=== PATIENT | female | born 1980 | race Caucasian/White ===

== ENCOUNTER 2016-05-12 21:47 | Emergency (ER) ==
[2016-05-12 21:48] VITALS: BMI 36.8
[2016-05-12 21:56] VITALS: BP 144/84; TEMP 98
[2016-05-12] MEDS ORDERED: PHENERGAN 25 MG/ML VIAL 25 MG in SODIUM CHLORIDE 50 ML IV STA (22:10)
[2016-05-12] MEDS ORDERED: SODIUM CHLORIDE 1,000 ML IV STA (22:10)
[2016-05-12] MEDS ORDERED: DEMEROL 25 MG/ML SYRINGE IVP STA (22:10)
[2016-05-12] MEDS ORDERED: PHENERGAN 25 MG/ML VIAL ONE (22:19)
[2016-05-12 22:21] LABS: BASOPHILS % (AUTO) 0.3 % (0.0-3.0); EOSINOPHILS # (AUTO) 0.1 K/ul (0.0-0.7); HEMATOCRIT 40.9 % (37.0-47.0); HEMOGLOBIN 13.7 g/dl (12.0-16.0); IMMATURE GRANULOCYTE % (AUTO) 0.3 % (0.0-5.0); LYMPHOCYTES # (AUTO) 2.6 K/uL (0.60-3.4); LYMPHOCYTES % (AUTO) 28.7 (10.0-50.0); MEAN CORPUSCULAR HEMOGLOBIN 28.3 pg (27.0-31.0); MEAN CORPUSCULAR HGB CONC 33.5 (31.8-35.4); MEAN CORPUSCULAR VOLUME 84.5 fl (81.0-99.0); MONOCYTES # (AUTO) 0.7 K/uL (0.4-2.0); MONOCYTES % (AUTO) 7.3 (0-10); NEUTROPHILS # (AUTO) 5.5 K/ul (2.0-6.9); NEUTROPHILS % (AUTO) 62.4; PLATELET COUNT 259 10^3/uL (140-440); RED BLOOD COUNT 4.84 10^6/ul (4.20-5.40); WHITE BLOOD COUNT 8.87 K/ul (4.6-10.2)
[2016-05-12 22:26] LABS: BILIRUBIN,URINE Negative (NEGATIVE); KETONES,URINE Negative (NEGATIVE); LEUKOCYTE ESTERASE ,URINE Negative (NEGATIVE); NITRITE,URINE Negative (NEGATIVE); PROTEIN,URINE Negative (NEGATIVE); URINE, BLOOD Trace-intact (NEGATIVE)
[2016-05-12 22:28] LABS: URINE PREGNANCY INTERNAL QC INTERNAL QC VALID
[2016-05-12 22:34] LABS: ADD URINE MICROSCOPIC YES
[2016-05-12 22:37] LABS: FLU INTERNAL QC INTERNAL QC VALID; RAPID FLU A NEGATIVE (NEGATIVE); RAPID FLU B NEGATIVE (NEGATIVE)
[2016-05-12 22:41] LABS: ALBUMIN 4.5 g/dL (3.4-5.0); ALBUMIN/GLOBULIN RATIO 1.07; ANION GAP 16.8; BILIRUBIN,TOTAL 0.28 mg/dL (0.00-1.20); BUN/CREATININE RATIO 8.75; CALCIUM 9.8 mg/dL (8.2-10.2); CREATININE 0.8 mg/dL (0.60-1.30); POTASSIUM 3.8 mmol/L (3.5-5.10); TOTAL PROTEIN 8.7 g/dL (6.4-8.2)
[2016-05-12 22:53] LABS: ERYTHROCYTE SEDIMENTATION RATE 24 mm/hr (0-20); ESR INTERNAL QC INTERNAL QC VALID
--- NOTE | 2016-05-12 23:17 | CT ---
EXAM: CT abdomen pelvis without and with intravenous contrast 05/12/2016. Coronal reformatted imag es obtained HISTORY: Abdominal pain and vomiting COMPARISON: 01/19/2015 FINDINGS: The liver shows no acute abnormality. Gallbladder has been removed. The adrenal glands and kidneys show no acute abnormality. The spleen and pancreas show no acute pro cess. There is no evidence of bowel obstruction. Diffusely fluid-filled distal small bowel may represent enteritis and/or ileus. Air-fluid levels within the colon. Correlate for diarrhea. Intrauterine d evice is in place. Unremarkable urinary bladder. No free air or free fluid. IMPRESSION: 1. No urinary or bowel obstruction and normal appendix 2. Fluid-filled distal small bowel. Air-fluid levels in the colon. This may relate to enteritis/d iarrhea.
[2016-05-12] MEDS ORDERED: MORPHINE 2 MG/ML SYRINGE IVP STA (23:23)
[2016-05-12] MEDS ORDERED: TORADOL IVP STA (23:23)
--- NOTE | 2016-05-12 23:26 | ED.PDOC ---
General ED Provider: Dr. SHAHNAZ STRICKLAND-ER Chief Complaint: Abdominal Pain Stated Complaint: hollie had diarrrhea and cramping Time Seen by Physician: 21:50 Mode of Arrival: Walk-In Information Source: Patient Exam Limitations: No limitations Primary Care Provider: SHAHNAZ STRICKLAND Nursing and Triage Documentation Reviewed and Agree: Yes GI Complaint Exam - Abdominal Pain Complaint/Exam Onset: Gradual Duration: several hours Symptoms Are: Still present Timing: Intermittent Initial Severity: Mild Current Severity: Mild Location of Pain: Diffuse Character: Reports: Dull, Aching, Cramping, Colicky Aggravating: Reports: None Alleviating: Reports: None Associated Signs and Symptoms: Reports: Decreased appetite, Nausea, Diarrhea. Denies: Diaphoresis, Fever, Cough, Chest pain, Dizziness, Back pain, Constipation, Blood in stool, Dysuria, Urinary frequency, Decreased urine output , Vaginal bleeding, Vaginal discharge, Vomiting, Sore throat, Decreased activity AAA Risk Factors: Reports: None Cardiac Risk Factors: Reports: None Ectopic Risk Factors: Reports: None Ovarian Torsion Risk Factors: Reports: Reproductive age Surgical Obstruction Risk Factors: Reports: Colicky abdominal pain Patient Rh Status: Unknown Abdominal Findings: Present: None Differential Diagnoses: Constipation, Diverticulitis, Gastroenteritis, Pancreatitis Review of Systems - Review Of Systems Constitutional: Reports: No symptoms Eyes: Reports: No symptoms Ears, Nose, Mouth, Throat: Reports: No symptoms Respiratory: Reports: No symptoms Cardiac: Reports: No symptoms GI: Reports: Abdominal pain, Diarrhea, Nausea : Reports: No symptoms Musculoskeletal: Reports: No symptoms Skin: Reports: No symptoms Neurological: Reports: No symptoms Endocrine: Reports: No symptoms Hematologic/Lymphatic: Reports: No symptoms All Other Systems: Reviewed and Negative Past Medical History - Past Medical History Endocrine: Reports: None Cardiovascular: Reports: None Respiratory: Reports: None Hematological: Reports: None Gastrointestinal: Reports: Other (IBS) Genitourinary: Reports: None Neuro/Psych: Reports: None Musculoskeletal: Reports: None Cancer: Reports: None Last Menstrual Period: 3 months ago - has IUD Other Pertinent Past Medical History: enlarged spleen, - Surgical History General Surgical History: Reports: Cholecystectomy - Family History Family History: Reports: None - Social History Smoking Status: Former smoker Hx Substance Use: No Alcohol Screening: None - Immunizations Tetanus Shot up to Date: Yes Physical Exam - Physical Exam Appearance: Well-appearing, No pain distress, Well-nourished Pain Distress: Mild Eyes: JASON ENT: Ears normal, Nose normal, Oropharynx normal Neck: Supple Respiratory: Airway patent, Breath sounds clear, Breath sounds equal, Respirations nonlabored Cardiovascular: RRR, Pulses normal, No rub, No murmur GI/: Soft, Nontender, No masses, Bowel sounds normal, No Organomegaly Musculoskeletal: Normal strength, ROM intact, No edema, No calf tenderness Skin: Warm, Dry, Normal color Neurological: Sensation intact, Motor intact, Reflexes intact, Cranial nerves intact, Alert, Oriented Psychiatric: Affect appropriate Interpretation - Radiology Interpretation Radiology Interpretation By: ED Physician Radiology Results: Negative Exam Interpreted: CT Scan Re-Evaluation - Re-Evaluation Time of Re-Evaluation: 23:26 Status: Improved Vital Signs Stable: Yes Pain Level: 2 Appearance: NAD Lungs: Clear Skin: Warm and Dry Neuro: Alert and Oriented X3 CV: RRR Critical Care Note - Critical Care Note Total Time (mins): 0 Course - Course Hematology/Chemistry: 05/12/16 22:19 05/12/16 22:19 Orders, Labs, Meds: Lab Review 05/12/16 05/12/16 05/12/16 22:12 22:15 22:19 WBC 8.87 RBC 4.84 Hgb 13.7 Hct 40.9 MCV 84.5 MCH 28.3 MCHC 33.5 RDW Coeff of Sabino 12.9 Plt Count 259 Immature Gran % (Auto) 0.3 Neut % (Auto) 62.4 Lymph % (Auto) 28.7 [place] % (Auto) 7.3 Eos % (Auto) 1.0 Baso % (Auto) 0.3 Immature Gran # (Auto) 0.0 Neut # 5.5 Lymph # 2.6 [place] # 0.7 Eos # 0.1 Baso # 0.0 ESR 24 H Sodium 141 Potassium 3.8 Chloride 107 Carbon Dioxide 21 Anion Gap 16.8 BUN 7 Creatinine 0.80 Estimated GFR (MDRD) 82.00 BUN/Creatinine Ratio 8.75 Glucose 94 Calcium 9.8 Total Bilirubin 0.28 AST 50 H ALT 90 H Alkaline Phosphatase 66 Total Protein 8.7 H Albumin 4.5 Globulin 4.2 Albumin/Globulin Ratio 1.07 Amylase 21 L Lipase 16 Urine Color Yellow Urine Clarity Clear Urine pH 6.0 Ur Specific [place] <=1.005 Urine Protein Negative Urine Glucose (UA) Negative Urine Ketones Negative Urine Blood Trace-intact Urine Nitrite Negative Urine Bilirubin Negative Urine Urobilinogen 0.2 Ur Leukocyte Esterase Negative Urine Microscopic RBC 0-2 Ur Squamous Epith Cells 2-5 Urine Test Negative Influenza A (Rapid) Negative Influenza B (Rapid) Negative Orders Category Date Time Status NPO REMINDER: IMAGING ONCE CARE 05/12/16 22:11 Completed IV [ED IV/MEDIPORT/POWERPORT] .ONCE EMERGENCY 05/12/16 22:10 Active AMYLASE Stat LAB 05/12/16 22:19 Completed CBC W/ AUTO DIFF Stat LAB 05/12/16 22:19 Completed COMPREHENSIVE METABOLIC PANEL Stat LAB 05/12/16 22:19 Completed ESR Stat LAB 05/12/16 22:19 Completed HEPATITIS PANEL, ACUTE Stat LAB 05/12/16 22:15 Received LIPASE Stat LAB 05/12/16 22:19 Completed MOLECULAR GROUP A STREP Stat LAB 05/12/16 22:15 Results RAPID FLU A/B Stat LAB 05/12/16 22:15 Completed STREP SCREEN Stat LAB 05/12/16 22:15 Results URINALYSIS C & S IF INDICATED Stat LAB 05/12/16 22:12 Completed URINE Stat LAB 05/12/16 22:12 Completed 0.9 % Sodium Chloride [Saline Flush] MEDS 05/12/16 22:10 Discontinued 1 syr IVF PRN PRN Ketorolac Tromethamine [Toradol] MEDS 05/12/16 23:23 Discontinued 30 mg IVP ONCE STA Meperidine HCl/Pf [Demerol 25 mg/ml Syringe] MEDS 05/12/16 22:10 Discontinued 25 mg IVP ONCE STA Morphine Sulfate [Morphine 2 mg/ml Syringe] MEDS 05/12/16 23:23 Discontinued 2 mg IVP ONCE STA Promethazine HCl [Phenergan 25 mg/ml Vial] MEDS 05/12/16 22:19 Discontinued 25 mg .ROUTE .STK-MED ONE Promethazine HCl [Phenergan 25 mg/ml Vial] 25 mg MEDS 05/12/16 22:10 Discontinued 0.9 % Sodium Chloride [Sodium Chloride] 50 ml IV ONCE Sodium Chloride 0.9% [Sodium Chloride] 1,000 ml MEDS 05/12/16 22:[address] ABDOMEN/PELVIS W/WO CONTRAS Stat RADS 05/12/16 22:11 Completed Medications Discontinued Medications Generic Name Dose Route Start Last Admin Trade Name Gen PRN Reason Stop Dose Admin Promethazine HCl 25 mg/ Sodium 51 mls @ 75 mls/hr 05/12/16 22:10 05/12/16 22: 29 Chloride IV 05/12/16 22:50 75 mls/hr ONCE STA Administration Sodium Chloride 1,000 mls @ 1,000 mls/hr 05/12/16 22:10 05/12/16 22:30 Sodium Chloride IV 05/12/16 23:09 1,000 mls/hr BOLUS STA Administration Ketorolac Tromethamine 30 mg 05/12/16 23:23 05/12/16 23:44 Toradol IVP 05/12/16 23:24 30 mg ONCE STA Administration Meperidine HCl 25 mg 05/12/16 22:10 05/12/16 22:25 Demerol 25 Mg/Ml Syringe IVP 05/12/16 22:11 25 mg ONCE STA Administration Morphine Sulfate 2 mg 05/12/16 23:23 05/12/16 23:44 Morphine 2 Mg/Ml Syringe IVP 05/12/16 23:24 2 mg ONCE STA Administration Sodium Chloride 1 syr 05/12/16 22:10 05/12/16 22:30 Saline Flush IVF 1 syr PRN PRN Administration To flush IV Vital Signs: Temp Pulse Resp BP Pulse Ox 05/12/16 21:48 98 F 79 20 144/84 H 98 Departure - Departure Time of Disposition: 23:26 Disposition: HOME SELF-CARE Discharge Problem: Enteritis Instructions: Enteritis (ED) Condition: Good Pt referred to PMD for follow-up: Yes Additional Instructions: phenergan 25mg q 4hrs prn #6--flagyl 250mg tid x 7 days...lomotil q 6hrs prn loose stool #4--bentyl 10mg qid prn pain/cramping#21--f/u with me next week if not improving--avoid dairy for 3 days Allergies/Adverse Reactions: Allergies No Known Allergies Allergy (Verified 05/12/16 21:56) Home Medications: Ambulatory Orders 1 [No Reported Medications] 05/12/16 Disposition Discussed With: Patient
== END 2016-05-12 23:57 | disposition home or self-care (01) ==
LOC: ED 21:47
DX: K52.9 Noninfective gastroenteritis and colitis, unspecified (principal)
CPT/HCPCS: 36415; 80053; 80074; 81001; 81025; 82150; 83690; 85025; 85651; 87651; 87804; 87880; 96361; 96365; 96375; 99284